=== PATIENT | female | born 1960 | race American Indian/Alaskan Native ===

== ENCOUNTER 2017-12-15 07:20 | Emergency (ER) | payer BC ==
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
[2017-12-15] MEDS ORDERED: ULTRAM PO ONE (08:22)
--- NOTE | 2017-12-15 09:11 | XRay Report ---
ROUTINE CHEST, TWO VIEWS: HISTORY: chest pain. The trachea, heart, mediastinal contour, lung spence and bony thorax are unremarkable. IMPRESSION: Unremarkable chest x-ray.
--- NOTE | 2017-12-15 09:12 | XRay Report ---
CERVICAL SPINE, 3 views: History: Neck pain. Findings: The vertebral bodies, disk spaces, posterior elements and prevertebral soft tissues are intact. No acute fracture or malalignment is identified. Moderate degenerative disc disease with anterior and posterior spurring is noted at C4-5 and C6-7. Impression: Cervical spondylosis. No evidence for acute injury to the cervical spine.
--- NOTE | 2017-12-15 09:12 | XRay Report ---
LUMBOSACRAL SPINE, 3 VIEWS: History: Back pain Findings: The vertebral bodies, disk spaces and posterior elements are intact. No compression deformity or malalignment. The SI joints are symmetric and unremarkable. Impression: 1. No evidence for acute injury to the lumbar spine.
[2017-12-15 10:27] VITALS: BP 131/80
== END 2017-12-15 10:26 | disposition home or self-care (01) ==
LOC: ED 07:20
DX: S46.812A Strain of other muscles, fascia and tendons at shoulder and upper arm level, left arm, initial encounter (principal); S46.811A Strain of other muscles, fascia and tendons at shoulder and upper arm level, right arm, initial encounter; S29.012A Strain of muscle and tendon of back wall of thorax, initial encounter; R07.89 Other chest pain; V89.2XXA Person injured in unspecified motor-vehicle accident, traffic, initial encounter; Y93.89 Activity, other specified; Y92.89 Other specified places as the place of occurrence of the external cause; Y99.8 Other external cause status
CPT/HCPCS: 71046; 72040; 72100; 99284